=== PATIENT | female | born 1980 | race Caucasian/White ===

== ENCOUNTER 2024-04-18 13:35 | Emergency (ER) | payer BC ==
[~2024-04-18] VITALS: Ht 170.2 cm; Wt 99.8 kg
[2024-04-18 13:44] VITALS: TEMP 98.3
[2024-04-18 14:26] LABS: BASOPHILS % 0.3 % (0.0-1.0); EOSINOPHILS # (AUTO) 0.1 (0.0-0.4); EOSINOPHILS % 1.8 % (0.0-6.0); HEMATOCRIT 40.1 % (34.2-44.1); LYMPHOCYTES # (AUTO) 1.9 (1.0-3.2); LYMPHOCYTES % 32.1 % (18.0-39.1); MEAN CORPUSCULAR HEMOGLOBIN 30.6 pg (28-32); MEAN CORPUSCULAR HGB CONC 32.4 g/dL (31-35); MEAN CORPUSCULAR VOLUME 94.4 fL (81-99); MONOCYTES # (AUTO) 0.4 (0.2-0.8); MONOCYTES % 7.3 % (4.4-11.3); NEUTROPHILS # (AUTO) 3.5 (2.1-6.9); NEUTROPHILS % 58.3 % (38.7-80.0); PLATELET COUNT 340 x10e3/uL (140-360); RED BLOOD COUNT 4.25 x10e6/uL (3.6-5.1); RED CELL DISTRIBUTION WIDTH 13.2 % (11.7-14.4); WHITE BLOOD COUNT 6.01 x10e3/uL (4.8-10.8)
[2024-04-18 14:33] LABS: INR 0.92; PROTHROMBIN TIME 12.8 seconds (11.9-14.5)
[2024-04-18 14:34] LABS: PARTIAL THROMBOPLASTIN TIME 29.7 seconds (23.8-35.5)
[2024-04-18 14:36] VITALS: PULSE 60; RESP 15
[2024-04-18 14:42] LABS: ALANINE AMINOTRANSFERASE 42 IU/L (0-55); ALBUMIN 3.9 g/dL (3.5-5.0); ALBUMIN/GLOBULIN RATIO 1.3 (0.8-2.0); ALKALINE PHOSPHATASE 56 IU/L (40-150); ANION GAP 12.9 mmol/L (8-16); BILIRUBIN,TOTAL 0.5 mg/dL (0.2-1.2); BLOOD UREA NITROGEN 14 mg/dL (7-26); BUN/CREATININE RATIO 17 (6-25); CALCIUM 8.7 mg/dL (8.4-10.2); CARBON DIOXIDE 21 mmol/L (22-29); CHLORIDE 108 mmol/L (98-107); CREATININE, SERUM 0.82 mg/dL (0.57-1.11); EST GLOMERULAR FILTRATION RATE 92 ML/MIN (>=60); GLUCOSE 91 mg/dL (74-118); POTASSIUM 3.9 mmol/L (3.5-5.1); SODIUM 138 mmol/L (136-145); TOTAL PROTEIN 6.9 g/dL (6.5-8.1)
[2024-04-18 14:48] LABS: TROPONIN I 0.007 ng/mL (0-0.300)
[2024-04-18 15:18] VITALS: BP 124/90; PULSE 75; RESP 14; O2SAT 100
== END 2024-04-18 15:19 | disposition home or self-care (01) ==
LOC: ER 13:44
DX: M79.605 Pain in left leg (principal); M79.604 Pain in right leg; R60.9 Edema, unspecified; F41.9 Anxiety disorder, unspecified
CPT/HCPCS: 36415; 80053; 83880; 84484; 84702; 85025; 85610; 85730; 93970; 99283